=== PATIENT | male | born 1995 | race Caucasian/White ===

== ENCOUNTER 2019-03-08 14:35 | Emergency (ER) | payer MEDICAID ==
[~2019-03-08] VITALS: Ht 180.3 cm; Wt 65.8 kg
[2019-03-08 14:44] VITALS: BP_SYST 126
[2019-03-08] MEDS ORDERED: IBUPROFEN 800 MG TABLET PO ONE (15:00)
[2019-03-08 16:21] VITALS: BP_SYST 126
== END 2019-03-08 16:19 | disposition home or self-care (01) ==
LOC: SED 14:35
DX: S62.314A Displaced fracture of base of fourth metacarpal bone, right hand, initial encounter for closed fracture (principal); S62.316A Displaced fracture of base of fifth metacarpal bone, right hand, initial encounter for closed fracture; V00.131A Fall from skateboard, initial encounter; Y93.51 Activity, roller skating (inline) and skateboarding; Y92.89 Other specified places as the place of occurrence of the external cause; Y99.8 Other external cause status
CPT/HCPCS: 99283

== ENCOUNTER 2021-04-18 11:01 | Emergency (ER) | payer MEDICAID ==
[~2021-04-18] VITALS: Ht 180.3 cm; Wt 61.2 kg
[2021-04-18 11:08] VITALS: BP_SYST 106
--- NOTE | 2021-04-18 11:14 | NUR ---
Patient triaged and placed in waiting room. VSS and patient appears in no acute distress at this time. Accompanied by family, awaiting available bed, and MD notified of need for MSE.
--- NOTE | 2021-04-18 11:27 | NUR ---
RECEIVED AND IN ROOM , CALM, ALERT, RESP UNLABORED, SKIN WARM AND DRY, COMMUNICATES CLEARLY IN FULL COMPLETE SENTENCES
--- NOTE | 2021-04-18 11:41 | NUR ---
HERE FOR C/O CP S/P INJURY. SR ON MONITOR DENIES SOB, COMMUNICATES CLEARLY, NO DISTRESS,
[2021-04-18] MEDS ORDERED: traMADol HCL HCL 50 MG TABLET (ULTRAM) PO ONE (11:45)
[2021-04-18] MEDS ORDERED: TRAM50TA PO (11:55)
[2021-04-18] MEDS ORDERED: NAPR-688 PO (11:55)
[2021-04-18 12:13] VITALS: BP_SYST 106
--- NOTE | 2021-04-18 12:14 | NUR ---
Patient given written and verbal discharge instructions and verbalizes understanding. ER MD discussed with patient the results and treatment provided. Patient in stable condition. ID arm band removed. Rx of IBU given. Patient educated on pain management and to follow up with PMD. Pain Scale 2/10 Opportunity for questions provided and answered. Medication side effect fact sheet provided.
== END 2021-04-18 12:13 | disposition home or self-care (01) ==
LOC: SED 11:01
DX: S29.011A Strain of muscle and tendon of front wall of thorax, initial encounter (principal); Z79.899 Other long term (current) drug therapy; X50.1XXA Overexertion from prolonged static or awkward postures, initial encounter; Y93.89 Activity, other specified; Y92.89 Other specified places as the place of occurrence of the external cause; Y99.8 Other external cause status
CPT/HCPCS: 71045; 93005; 99283